=== PATIENT | male | born 1990 ===

== ENCOUNTER 2016-08-18 18:34 | Emergency (ER) | payer OTHER ==
[2016-08-18] MEDS ORDERED: PREDNISONE 20 MG TABLET ONE (19:33)
[2016-08-18] MEDS ORDERED: DIPHENHYDRAMINE HCL 50 MG CAPSULE ONE (19:33)
[2016-08-18] MEDS ORDERED: FAMOTIDINE 20 MG TABLET ONE (19:33)
== END 2016-08-18 19:42 | disposition home or self-care (01) ==
LOC: ED 18:34
DX: L23.9 Allergic contact dermatitis, unspecified cause (principal)
CPT/HCPCS: 99282; 99283; A9270 ×2; J7512